=== PATIENT | male | born 1955 | race African-American/Black ===

== ENCOUNTER → 2021-06-28 | Outpatient (CLI) | payer OTHER ==
[~2021-06-28] VITALS: Ht 175.3 cm; Wt 113.4 kg
[~2021-06-28] MED LIST: ASA81BEC PO; FISH OIL 1,001000 M3 PO; LIPITOR40 MG PO; LISINOPRIL10 MG PO
--- NOTE | 2021-06-30 08:14 | P ---
[facility] [place] [address] PROCEDURE REPORT Name: LISA STEPHEN Room #: REG [facility] Arline#: [id number] Admission: 06/28/21 Attend Phys: Jhoan Xavier Discharge: Date of : 57 Report #: [id number] THIS REPORT FOR: cc: Hank Salinas MD, Richard K. MD McElhinney, Christian C. MD ~ cc: Hank Salinas MD DATE OF SERVICE: 06/28/2021 PROCEDURE PERFORMED: Colonoscopy with biopsies. HISTORY OF PRESENT ILLNESS: The patient is a 65-year-old male with a history of colon polyps 5 years ago, adenomatous polyp at that time. He is here for routine 5-year followup. He denies any symptoms, no family history of colon cancer. DESCRIPTION OF PROCEDURE: The risks and benefits of the procedure were explained to the patient, those risks including but not limited to bleeding, perforation and the risk of sedation. He understood these risks and gave informed consent. Sedation was given using propofol per anesthesia. Next, a digital rectal exam was initially performed, which was normal. Next, using a standard Olympus colonoscope, the scope was placed in the patient's anus and advanced under direct vision to the cecum. The overall prep was excellent. The cecum and ileocecal valve were normal in appearance. Ascending, transverse, and descending colon were normal. Multiple diverticula were noted in the sigmoid colon. Also noted was a 4 mm sessile polyp. This was removed with cold forceps. The rectal mucosa was normal. On retroflexion, no abnormalities were noted. The scope was then withdrawn and the procedure terminated. The patient tolerated the procedure well. IMPRESSION: 1. Sigmoid diverticulosis. 2. Small sigmoid colon polyp. 3. Otherwise, normal colonoscopy. RECOMMENDATIONS: 1. Await biopsy results. 2. If polyp is hyperplastic, repeat in 10 years; if adenomatous polyp, repeat in 5 years. [facility] [address] [place] [address] PROCEDURE REPORT Name: LISA STEPHEN Room #: [facility]#: [id number] Admission: 06/28/21 Attend Phys: Jhoan Xavier Discharge: Date of : 57 Report #: [id number] Thank you for allowing me to participate in his care. <ELECTRONICALLY SIGNED> By: Jhoan Carrizales MD 06/30/21 0814 [id number] 1755 Jhoan Carrizales MD /nt
--- NOTE | 2021-07-03 12:06 | PATH ---
[facility] [address] [place] [address] PATHOLOGY RPT PROCEDURE Name: LISA BYRNE Room #: [facility].#: [id number] Admission: 06/28/21 Date of : 57 Discharge: Report #: [id number] Path Case #: [id number] [facility] Accession Number: [id number] . 01 Material submitted: . sigmoid colon - SIGMOID COLON POLYP . 01 Clinical history: . COLONOSCOPY . 02 Diagnosis: Polyp, sigmoid colon polyp, endoscopic biopsy: - Hyperplastic polyp and lymphoid aggregate. - Negative for dysplasia. (IUV/db; 06/30/2021) [facility]Q 06/30/2021 1747 Local . 02 Electronically signed: . Anastasiya Joy MD, Pathologist NPI- [id number] . 01 Gross description: . Received in formalin labeled "Lisa Byrne, sigmoid colon polyp" are 2 boyce-brown soft tissue fragments measuring in aggregate 0.5 x 0.5 x 0.1 cm. The specimen is submitted entirely in A1. [place] [facility] 06/29/2021 0946 Local . 02 Pathologist provided ICD-10: K63.5 . 02 CPT . 084707 Specimen Comment: A courtesy copy of this report has been sent to [phone], [phone] Specimen Comment: [id number] Specimen Comment: Report sent to / DR. BASHIR Performed at: [address], [place] [id number] MD Willie Palmer MD Phone: [phone] Performed at: [address] [id number] MD Anastasiya Joy MD Phone: [phone]
== END | disposition home or self-care (01) ==
LOC: GI 08:23
PROVIDERS: ATTEND Specialist
DX: Z12.11 Encounter for screening for malignant neoplasm of colon (principal); Z86.010 Personal history of colon polyps; K63.5 Polyp of colon; K57.30 Diverticulosis of large intestine without perforation or abscess without bleeding; I10 Essential (primary) hypertension; E78.5 Hyperlipidemia, unspecified; Z98.890 Other specified postprocedural states; Z79.899 Other long term (current) drug therapy; Z87.891 Personal history of nicotine dependence; Z79.82 Long term (current) use of aspirin
CPT/HCPCS: 62110; 62900